=== PATIENT | female | born 1975 | race Caucasian/White ===

== ENCOUNTER 2019-02-25 15:20 | Inpatient (IN) | payer OTHER ==
[2019-02-25 20:59] VITALS: BMI 20.6
--- NOTE | 2019-02-25 21:23 | HP ---
CIWA Score Anxiety: 3 Paroxysmal Sweats: 2 - Admission Criteria OASAS Guidelines: Admission for Medically Managed Detox: Requires at least one of the followin. CIWA greater than 12 2. Seizures within the past 24 hours 3. Delirium tremens within the past 24 hours 4. Hallucinations within the past 24 hours 5. Acute intervention needed for co occurring medical disorder 6. Acute intervention needed for co occurring psychiatric disorder 7. Severe withdrawal that cannot be handled at a lower level of care (continued vomiting, continued diarrhea, abnormal vital signs) requiring intravenous medication and/or fluids 8. Client has a history of seizures is prescribed Keppra. Admission ROS [facility] Chief Complaint: Withdrawal symptoms Allergies/Adverse Reactions: Allergies Allergy/AdvReac Type Severity Reaction Status Date / Time No Known Allergies Allergy Verified 02/25/19 18:50 History of Present Illness: 43 y.o. woman with history of alcohol, heroin, crack-cocaine and marijuana dependence is here seeking rehab. She reports she completed detox 1 month ago at [facility] but left AMA from their rehab. She is currently enrolled at [facility] and states she was last medicated with 200mg of methadone earlier today (dose to be verified in the morning). PMHx: Epilepsy, HTN, Asthma, Hyperlipidemia, Depression Exam Limitations: No Limitations - Ebola screening Have you traveled outside of the country in the last 21 days: No Have you had contact with anyone from an Ebola affected area: No - Review of Systems Constitutional: No Symptoms Reported EENT: reports: No Symptoms Reported Respiratory: reports: Shortness of Breath Cardiac: reports: No Symptoms Reported GI: reports: No Symptoms Reported : reports: No Symptoms Reported Musculoskeletal: reports: No Symptoms Reported Integumentary: reports: No Symptoms Reported Neuro: reports: Seizure (3 months ago) Endocrine: reports: No Symptoms Reported Hematology: reports: No Symptoms Reported Psychiatric: reports: Orientated x3, Depressed Other Systems: Reviewed and Negative Patient History - Patient Medical History Hx Anemia: No Hx Asthma: Yes Hx Chronic Obstructive Pulmonary Disease (COPD): No Hx Cancer: No Hx Cardiac Disorders: No Hx Congestive Heart Failure: No Hx Hypertension: Yes Hx Hypercholesterolemia: Yes Hx Pacemaker: No HX Cerebrovascular Accident: No Hx Seizures: Yes (3 months ago ) Hx Dementia: No Hx Diabetes: No Hx Gastrointestinal Disorders: No Hx Liver Disease: No Hx Genitourinary Disorders: No Hx Sexually Transmitted Disorders: No Hx Renal Disease (ESRD): No Hx Thyroid Disease: No Hx Human Immunodeficiency Virus (HIV): No Hx Hepatitis C: No Hx Depression: Yes Hx Suicide Attempt: No Hx Bipolar Disorder: No Hx Schizophrenia: No - Patient Surgical History Past Surgical History: No - PPD History Documented Results: Negative w/o proof PPD to be Administered?: Yes - Reproductive History Patient is a Female of Child Bearing Age (11 -55 yrs old): No Last Menstrual Period: 02/01/19 Patient : No - Smoking Cessation Smoking history: Current every day smoker Have you smoked in the past 12 months: Yes Aproximately how many cigarettes per day: 20 Initiated information on smoking cessation: Yes 'Breaking Loose' booklet given: 02/25/19 - Substance & Tx. History Hx Alcohol Use: Yes Hx Substance Use: Yes Substance Use Type: Alcohol, Cocaine, Marijuana Hx Substance Use Treatment: Yes ([facility] ) - Substances abused Alcohol Substance route: Oral Frequency: Daily Amount used: 2 to 3 a pack of beer Age of first use: 11 Date of last use: 02/25/19 Crack Substance route: Smoking Frequency: Daily Amount used: 1 bundle Age of first use: 19 Date of last use: 02/25/19 Cocaine Substance route: Inhalation Frequency: Daily Amount used: 1 bundle Age of first use: 12 Date of last use: 02/25/19 Marijuana/Hashish Substance route: Smoking Frequency: Daily Amount used: 3 or 4 whole bags Age of first use: 11 Date of last use: 02/25/19 Heroin Substance route: Inhalation Frequency: Daily Amount used: 1 to 4 bags Age of first use: 12 Date of last use: 02/24/19 Family Disease History - Family Disease History Family History: Denies Admission Physical Exam BHS - Vital Signs Vital Signs: Vital Signs - 24 hr 02/25/19 02/25/19 18:48 20:59 Temperature 98 F 98 F Pulse Rate 122 H 122 H Respiratory 18 18 Rate Blood Pressure 134/76 134/76 - Physical General Appearance: Yes: No Apparent Distress, Nourished, Appropriately Dressed HEENTM: Yes: Hearing grossly Normal, Normocephalic, Normal Voice Respiratory: Yes: Lungs Clear, Normal Breath Sounds, No Respiratory Distress, No Accessory Muscle Use Neck: Yes: Within Normal Limits, No masses,lesions,Nodules Breast: Yes: Breast Exam Deferred Cardiology: Yes: Tachycardia Genitourinary: Yes: Other (no complaints reported) Back: Yes: Normal Inspection Musculoskeletal: Yes: full range of Motion, Gait Steady, Pelvis Stable Extremities: Yes: Normal Inspection, Normal Range of Motion, Non-Tender Neurological: Yes: Alert, Normal Mood/Affect, Normal Response Integumentary: Yes: Normal Color, Dry, Warm Lymphatic: Yes: Within Normal Limits - Diagnostic (1) Opioid dependence on agonist therapy Current Visit: Yes Status: Chronic (2) Nicotine dependence Current Visit: Yes Status: Chronic (3) Alcohol dependence Current Visit: Yes Status: Chronic (4) Cocaine dependence Current Visit: Yes Status: Chronic (5) Marijuana dependence Current Visit: Yes Status: Chronic (6) Asthma Current Visit: Yes Status: Chronic (7) HTN (hypertension) Current Visit: Yes Status: Chronic (8) Hyperlipidemia Current Visit: Yes Status: Chronic (9) Seizures Current Visit: Yes Status: Chronic Cleared for Admission [facility] - Detox or Rehab [facility] Level of Care: Observation Bed Detox Regimen/Protocol: Not Applicable Claeared for Rehab Admission: Yes Breathalyzer - Breathalyzer Breathalyzer: 0 Urine Drug Screen - Test Device Lot number: [id number] Expiration date: 10/31/20 - Control Is test valid?: Yes - Results Drug screen NEGATIVE: No Urine drug screen results: THC-Marijuana, WILL-Cocaine, MTD-Methadone Inpatient Rehab Admission - Rehab Decision to Admit Inpatient rehab admission?: Yes - Initial Determination Are CD services needed?: Yes Free of communicable disease: Yes Not in need of hospitalization: Yes - Rehab Admission Criteria Previous failed treatment: Yes Poor recovery environment: Yes Comorbidities: Yes Lacks judgement: Yes Patient is meeting Inpatient Rehab admission criteria:: Yes
[2019-02-25] MEDS ORDERED: MAGNESIUM HYDROX 2400MG/30ML ORAL SUSPENSION 30 ML CUP PO PRN (21:41)
[2019-02-25] MEDS ORDERED: hydrOXYzine PAMOATE 50 MG CAPSULE (FP) PO PRN (21:41)
[2019-02-25] MEDS ORDERED: P-EPHED 60MG/TRIPROLIDI 2.5MG TABLET PO PRN (21:41)
[2019-02-25] MEDS ORDERED: MENTHOL/PHENOL 1 EACH UD MM PRN (21:41)
[2019-02-25] MEDS ORDERED: NICOTINE POLACRILEX 2 MG GUM BC PRN (21:41)
[2019-02-25] MEDS ORDERED: IBUPROFEN 400 MG TABLET (FP) PO PRN (21:41)
[2019-02-25] MEDS ORDERED: MAGNESIUM CITRATE 300 ML BOTTLE PO PRN (21:41)
[2019-02-25] MEDS ORDERED: LOPERAMIDE HCL 2 MG CAPSULE PO PRN (21:41)
[2019-02-25] MEDS ORDERED: ACETAMINOPHEN 325 MG TABLET (FP) PO PRN (21:41)
[2019-02-25] MEDS ORDERED: guaiFENesin 200 MG/10 ML 10 ML UNIT-DOSE CUPS PO PRN (21:41)
[2019-02-25] MEDS ORDERED: ALBUTEROL SO4 8 GM HFA INHALER IH PRN (21:44)
[2019-02-25] MEDS ORDERED: levETIRAcetam 250 MG TABLET (FP) PO SCH (22:00)
[2019-02-25] MEDS: QUEtiapine FUMARATE 100 MG TABLET (FP) PO SCH (22:53)
[2019-02-25] MEDS: THIAMINE HCL 100 MG TABLET (FP) PO SCH (22:53)
[2019-02-26 01:30] LABS: HCG,QUALITATIVE URINE Negative
[2019-02-26 01:34] LABS: EPI CELLS 6.1 /HPF (0-5/HPF); HYALINE CASTS 2 /lpf (0-8); PH,URINE 5.5 (5.0-8.0); URINE APPEARANCE CLEAR; URINE BACTERIA 256.6 /hpf (NEGATIVE); URINE BILIRUBIN NEGATIVE (NEGATIVE); URINE COLOR YELLOW; URINE GLUCOSE (UA) NEGATIVE (NEGATIVE); URINE KETONE NEGATIVE (NEGATIVE); URINE LEUK ESTERASE TRACE (NEGATIVE); URINE NITRITE NEGATIVE (NEGATIVE); URINE PROTEIN NEGATIVE (NEGATIVE); URINE RBC 1 /hpf (0-4); URINE UROBILINOGEN 0.2 mg/dL (0.2-1.0); URINE WBC 4 /hpf (0-5)
--- NOTE | 2019-02-26 08:04 | EKG ---
Test Reason : Blood Pressure : / mmHG Vent. Rate : 051 BPM Atrial Rate : 051 BPM P-R Int : 108 ms QRS Dur : 090 ms QT Int : 540 ms P-R-T Axes : 078 076 061 degrees QTc Int : 497 ms SINUS BRADYCARDIA WITH SHORT GA POSSIBLE LEFT ATRIAL ENLARGEMENT LEFT VENTRICULAR HYPERTROPHY PROLONGED QT ABNORMAL ECG NO PREVIOUS ECGS AVAILABLE Confirmed by CORRIE BRAN MD ([id number]) on 02/26/2019 8:04:15 AM Referred By: Lexi Villalpando Confirmed By:CORRIE BRAN MD
[2019-02-26] MEDS ORDERED: METHADONE HCL 40 MG DISPERSABLE TABLET PO ONE (08:05)
[2019-02-26] MEDS: LISINOPRIL 5 MG TABLET (FP) PO SCH (09:07)
[2019-02-26] MEDS: PRENATAL VITAMINS W/ FOLIC ACID TABLET (FP) PO SCH (09:07)
[2019-02-26] MEDS: NICOTINE 21 MG/24 HOURS TOPICAL PATCH TD SCH (09:09)
[2019-02-26] MEDS ORDERED: PT OWN MED DRAWER 7, Y5N ONE (09:10)
[2019-02-26] MEDS: levETIRAcetam 500 MG TABLET (FP) PO SCH ×2 (09:51→21:32)
--- NOTE | 2019-02-26 10:46 | PN ---
S Progress Note Note: EKG showed prolonged Qt INTERVAL with Bradycardia. History of HTN. BP stable, heart rate was 54 then increased to 62 at 930. Requesting repeat today. will continue to monitor. Vital Signs (72 hours) 02/25/19 02/25/19 02/26/19 18:48 20:59 00:30 Temperature 98 F 98 F Pulse Rate 122 H 122 H Respiratory 18 18 18 Rate Blood Pressure 134/76 134/76 02/26/19 02/26/19 02/26/19 03:30 07:08 09:30 Temperature 98.2 F Pulse Rate 54 L 62 Respiratory 18 18 Rate Blood Pressure 123/67 124/76
--- NOTE | 2019-02-26 12:27 | EKG ---
Test Reason : Blood Pressure : / mmHG Vent. Rate : 049 BPM Atrial Rate : 049 BPM P-R Int : 106 ms QRS Dur : 084 ms QT Int : 512 ms P-R-T Axes : 072 068 051 degrees QTc Int : 462 ms SINUS BRADYCARDIA WITH SHORT VA POSSIBLE LEFT ATRIAL ENLARGEMENT LEFT VENTRICULAR HYPERTROPHY ABNORMAL ECG WHEN COMPARED WITH ECG OF 25-FEB-2019 22:06, NO SIGNIFICANT CHANGE WAS FOUND Confirmed by YINA GLEASON, CORRIE ([id number]) on 02/26/2019 12:27:26 PM Referred By: Lexi Villalpando Confirmed By:CORRIE BRAN MD
[2019-02-26 12:39] LABS: HEMATOCRIT 35.1 % (32.4-45.2); HEMOGLOBIN 11.3 GM/dL (10.7-15.3); MCH 28.4 pg (25.7-33.7); MCHC 32.2 g/dl (32.0-36.0); MEAN CELL VOLUME 88.4 fl (80-96); MEAN PLT VOLUME 9.7 fl (7.5-11.1); PLATELET COUNT 215 K/MM3 (134-434); RBC 3.97 M/mm3 (3.60-5.2); RDW 15.1 % (11.6-15.6); WHITE BLOOD COUNT 4.6 K/mm3 (4.0-10.0)
[2019-02-26 12:52] LABS: ALBUMIN 3.1 g/dl (3.4-5.0); BILIRUBIN,TOTAL 0.2 mg/dL (0.2-1); BLOOD UREA NITROGEN 15.9 mg/dL (7-18); CALCIUM 8.4 mg/dL (8.5-10.1); TOT PROT 6.3 g/dl (6.4-8.2)
[2019-02-26] MEDS: THIAMINE HCL 100 MG TABLET (FP) PO SCH (21:32)
[2019-02-26] MEDS: QUEtiapine FUMARATE 100 MG TABLET (FP) PO SCH (21:32)
[2019-02-26] MEDS: PATIENT'S OWN MEDICATION (NON-FORMULARY) (Simvastatin [Simvastatin] 10 MG) PO SCH (21:40)
[2019-02-27] MEDS: METHADONE HCL 40 MG DISPERSABLE TABLET PO SCH (06:06)
[2019-02-27] MEDS: LISINOPRIL 5 MG TABLET (FP) PO SCH (09:13)
[2019-02-27] MEDS: NICOTINE 21 MG/24 HOURS TOPICAL PATCH TD SCH (09:13)
[2019-02-27] MEDS: PRENATAL VITAMINS W/ FOLIC ACID TABLET (FP) PO SCH (09:13)
[2019-02-27] MEDS: levETIRAcetam 500 MG TABLET (FP) PO SCH ×2 (09:13→21:40)
[2019-02-27] MEDS ORDERED: PT OWN MED DRAWER 7, Y5N ONE ×3 (10:38→21:42)
[2019-02-27] MEDS: MAG HYDROX/AL HYDROX/SIMETH 30 ML UNIT-DOSE CUP PO PRN (11:58)
[2019-02-27] MEDS: THIAMINE HCL 100 MG TABLET (FP) PO SCH (21:39)
[2019-02-27] MEDS: QUEtiapine FUMARATE 100 MG TABLET (FP) PO SCH (21:40)
[2019-02-27] MEDS: PATIENT'S OWN MEDICATION (NON-FORMULARY) (Simvastatin [Simvastatin] 10 MG) PO SCH (21:41)
[2019-02-28] MEDS: METHADONE HCL 40 MG DISPERSABLE TABLET PO SCH (06:43)
[2019-02-28] MEDS: NICOTINE 21 MG/24 HOURS TOPICAL PATCH TD SCH (09:48)
[2019-02-28] MEDS: levETIRAcetam 500 MG TABLET (FP) PO SCH ×2 (09:48→21:18)
[2019-02-28] MEDS: PRENATAL VITAMINS W/ FOLIC ACID TABLET (FP) PO SCH (09:48)
[2019-02-28] MEDS: LISINOPRIL 5 MG TABLET (FP) PO SCH (09:49)
[2019-02-28] MEDS: PATIENT'S OWN MEDICATION (NON-FORMULARY) (Simvastatin [Simvastatin] 10 MG) PO SCH (11:00)
[2019-02-28] MEDS: MELATONIN 5 MG TABLETS PO PRN (21:17)
[2019-02-28] MEDS: THIAMINE HCL 100 MG TABLET (FP) PO SCH (21:17)
[2019-02-28] MEDS: QUEtiapine FUMARATE 100 MG TABLET (FP) PO SCH (21:18)
[2019-02-28] MEDS: MAG HYDROX/AL HYDROX/SIMETH 30 ML UNIT-DOSE CUP PO PRN (21:24)
[2019-02-28] MEDS ORDERED: PT OWN MED DRAWER 7, Y5N ONE (23:23)
[2019-03-01] MEDS: METHADONE HCL 40 MG DISPERSABLE TABLET PO SCH (06:10)
[2019-03-01] MEDS: levETIRAcetam 500 MG TABLET (FP) PO SCH ×2 (09:50→21:10)
[2019-03-01] MEDS: NICOTINE 21 MG/24 HOURS TOPICAL PATCH TD SCH (09:50)
[2019-03-01] MEDS: PRENATAL VITAMINS W/ FOLIC ACID TABLET (FP) PO SCH (09:50)
[2019-03-01] MEDS: LISINOPRIL 5 MG TABLET (FP) PO SCH (09:50)
[2019-03-01] MEDS: THIAMINE HCL 100 MG TABLET (FP) PO SCH (21:09)
[2019-03-01] MEDS: QUEtiapine FUMARATE 100 MG TABLET (FP) PO SCH (21:10)
[2019-03-01] MEDS: PATIENT'S OWN MEDICATION (NON-FORMULARY) (Simvastatin [Simvastatin] 10 MG) PO SCH ×2 (21:12→21:13)
[2019-03-01] MEDS: MAG HYDROX/AL HYDROX/SIMETH 30 ML UNIT-DOSE CUP PO PRN (21:13)
[2019-03-01] MEDS: MELATONIN 5 MG TABLETS PO PRN (21:14)
[2019-03-02] MEDS: MAG HYDROX/AL HYDROX/SIMETH 30 ML UNIT-DOSE CUP PO PRN (06:00)
[2019-03-02] MEDS: METHADONE HCL 40 MG DISPERSABLE TABLET PO SCH (06:00)
[2019-03-02] MEDS: LISINOPRIL 5 MG TABLET (FP) PO SCH (10:01)
[2019-03-02] MEDS: PRENATAL VITAMINS W/ FOLIC ACID TABLET (FP) PO SCH (10:01)
[2019-03-02] MEDS: NICOTINE 21 MG/24 HOURS TOPICAL PATCH TD SCH (10:02)
[2019-03-02] MEDS: levETIRAcetam 500 MG TABLET (FP) PO SCH ×2 (10:02→21:01)
[2019-03-02] MEDS ORDERED: levETIRAcetam 500 MG TABLET (FP) PO ONE (14:36)
--- NOTE | 2019-03-02 14:42 | PN ---
[facility] Progress Note Note: Patient's Levetiracetam level is 6.1. As per nurse, StanDonna Godinez, patient had earlier refused her AM dose. No seizure activity noted or reported aty this time Vital Signs Temperature 98 F 03/02/19 07:14 Pulse Rate 51 L 03/02/19 09:11 Respiratory Rate 18 03/02/19 09:11 Blood Pressure 111/65 03/02/19 09:11 O2 Sat by Pulse Oximetry (%) Action: Levetiracem 1000mg tablet oral stat ordered
[2019-03-02] MEDS ORDERED: levETIRAcetam 250 MG TABLET (FP) PO ONE ×2 (15:20→20:44)
[2019-03-02] MEDS: THIAMINE HCL 100 MG TABLET (FP) PO SCH (21:00)
[2019-03-02] MEDS: QUEtiapine FUMARATE 100 MG TABLET (FP) PO SCH (21:00)
[2019-03-02] MEDS: PATIENT'S OWN MEDICATION (NON-FORMULARY) (Simvastatin [Simvastatin] 10 MG) PO SCH (21:01)
[2019-03-02] MEDS: MELATONIN 5 MG TABLETS PO PRN (21:01)
[2019-03-03] MEDS: METHADONE HCL 40 MG DISPERSABLE TABLET PO SCH (06:19)
[2019-03-03] MEDS ORDERED: levETIRAcetam 250 MG TABLET (FP) PO ONE (08:48)
[2019-03-03] MEDS: NICOTINE 21 MG/24 HOURS TOPICAL PATCH TD SCH (09:55)
[2019-03-03] MEDS: LISINOPRIL 5 MG TABLET (FP) PO SCH (09:55)
[2019-03-03] MEDS: PRENATAL VITAMINS W/ FOLIC ACID TABLET (FP) PO SCH (09:55)
[2019-03-03] MEDS: levETIRAcetam 500 MG TABLET (FP) PO SCH ×2 (09:56→21:12)
[2019-03-03] MEDS ORDERED: PT OWN MED DRAWER 7, Y5N ONE (19:33)
[2019-03-03] MEDS: THIAMINE HCL 100 MG TABLET (FP) PO SCH (21:12)
[2019-03-03] MEDS: PATIENT'S OWN MEDICATION (NON-FORMULARY) (Simvastatin [Simvastatin] 10 MG) PO SCH (21:12)
[2019-03-03] MEDS: QUEtiapine FUMARATE 100 MG TABLET (FP) PO SCH (21:12)
[2019-03-03] MEDS: MELATONIN 5 MG TABLETS PO PRN (21:13)
[2019-03-04] MEDS: METHADONE HCL 40 MG DISPERSABLE TABLET PO SCH (06:40)
[2019-03-04] MEDS ORDERED: ASPIRIN 81 MG CHEWABLE TABLETS PO ONE (07:00)
[2019-03-04] MEDS: NICOTINE 21 MG/24 HOURS TOPICAL PATCH TD SCH (09:21)
[2019-03-04] MEDS: PRENATAL VITAMINS W/ FOLIC ACID TABLET (FP) PO SCH (09:21)
[2019-03-04] MEDS: levETIRAcetam 500 MG TABLET (FP) PO SCH ×2 (09:21→21:13)
[2019-03-04] MEDS: LISINOPRIL 5 MG TABLET (FP) PO SCH (09:21)
[2019-03-04] MEDS: THIAMINE HCL 100 MG TABLET (FP) PO SCH (21:13)
[2019-03-04] MEDS: QUEtiapine FUMARATE 100 MG TABLET (FP) PO SCH (21:13)
[2019-03-04] MEDS: PATIENT'S OWN MEDICATION (NON-FORMULARY) (Simvastatin [Simvastatin] 10 MG) PO SCH (21:14)
[2019-03-04] MEDS: MELATONIN 5 MG TABLETS PO PRN (21:25)
[2019-03-05] MEDS: METHADONE HCL 40 MG DISPERSABLE TABLET PO SCH (06:16)
[2019-03-05] MEDS: levETIRAcetam 500 MG TABLET (FP) PO SCH ×2 (09:25→21:21)
[2019-03-05] MEDS: NICOTINE 21 MG/24 HOURS TOPICAL PATCH TD SCH (09:25)
[2019-03-05] MEDS: PRENATAL VITAMINS W/ FOLIC ACID TABLET (FP) PO SCH (09:25)
[2019-03-05] MEDS: LISINOPRIL 5 MG TABLET (FP) PO SCH (09:26)
--- NOTE | 2019-03-05 16:28 | PN ---
S Progress Note (SOAP) Subjective: Patient's program needs psychiatry to change seoquel to trazadone. The program does not provide seroquel. Objective: No examination needed at this time. 03/05/19 16:27 Assessment: Program needs. 03/05/19 16:27 Plan: Patient's program requires seroquel to trazadone. The program does not provide seroquel.
[2019-03-05] MEDS: MELATONIN 5 MG TABLETS PO PRN (21:21)
[2019-03-05] MEDS: THIAMINE HCL 100 MG TABLET (FP) PO SCH (21:21)
[2019-03-05] MEDS: QUEtiapine FUMARATE 100 MG TABLET (FP) PO SCH (21:21)
[2019-03-05] MEDS: PATIENT'S OWN MEDICATION (NON-FORMULARY) (Simvastatin [Simvastatin] 10 MG) PO SCH (21:23)
[2019-03-06] MEDS: METHADONE HCL 40 MG DISPERSABLE TABLET PO SCH (06:09)
[2019-03-06] MEDS: PRENATAL VITAMINS W/ FOLIC ACID TABLET (FP) PO SCH (09:15)
[2019-03-06] MEDS: LISINOPRIL 5 MG TABLET (FP) PO SCH (09:15)
[2019-03-06] MEDS: NICOTINE 21 MG/24 HOURS TOPICAL PATCH TD SCH (09:15)
[2019-03-06] MEDS: levETIRAcetam 500 MG TABLET (FP) PO SCH ×2 (09:15→21:10)
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
[2019-03-06] MEDS: THIAMINE HCL 100 MG TABLET (FP) PO SCH (21:10)
[2019-03-06] MEDS: MELATONIN 5 MG TABLETS PO PRN (21:10)
[2019-03-06] MEDS: PATIENT'S OWN MEDICATION (NON-FORMULARY) (Simvastatin [Simvastatin] 10 MG) PO SCH (21:11)
[2019-03-06] MEDS: MIRTAZAPINE 15 MG TABLET (FP) PO SCH (21:12)
[2019-03-06] MEDS ORDERED: QUEtiapine FUMARATE 100 MG TABLET (FP) PO SCH (22:00)
[2019-03-07] MEDS: METHADONE HCL 40 MG DISPERSABLE TABLET PO SCH (06:11)
[2019-03-07] MEDS: levETIRAcetam 500 MG TABLET (FP) PO SCH ×2 (10:09→21:06)
[2019-03-07] MEDS: NICOTINE 21 MG/24 HOURS TOPICAL PATCH TD SCH (10:10)
[2019-03-07] MEDS: LISINOPRIL 5 MG TABLET (FP) PO SCH (10:10)
[2019-03-07] MEDS: PRENATAL VITAMINS W/ FOLIC ACID TABLET (FP) PO SCH (10:10)
--- NOTE | 2019-03-07 17:27 | PN ---
[facility] Progress Note Note: Psychiatric nurse practitioner note: Patient scheduled to be discharged on sunday to " [facility] rehab dedicated intermodal truck driver program." As per d/c plan, patient is not allowed to accept seroquel while at [facility] long-term program. Will d/c seroquel 100mg and order Seroquel 50mg . Last dose of seroquel will be given on Sunday evening. Patient in agreement with plan.
[2019-03-07] MEDS ORDERED: PT OWN MED DRAWER 7, Y5N ONE (19:28)
[2019-03-07] MEDS: THIAMINE HCL 100 MG TABLET (FP) PO SCH (21:05)
[2019-03-07] MEDS: MIRTAZAPINE 15 MG TABLET (FP) PO SCH (21:06)
[2019-03-07] MEDS: PATIENT'S OWN MEDICATION (NON-FORMULARY) (Simvastatin [Simvastatin] 10 MG) PO SCH (21:06)
[2019-03-07] MEDS: QUEtiapine FUMARATE 50 MG TABLET PO SCH (21:06)
[2019-03-08] MEDS: METHADONE HCL 40 MG DISPERSABLE TABLET PO SCH (06:53)
[2019-03-08] MEDS: levETIRAcetam 500 MG TABLET (FP) PO SCH ×2 (10:04→21:26)
[2019-03-08] MEDS: PRENATAL VITAMINS W/ FOLIC ACID TABLET (FP) PO SCH (10:04)
[2019-03-08] MEDS: NICOTINE 21 MG/24 HOURS TOPICAL PATCH TD SCH (10:04)
[2019-03-08] MEDS: LISINOPRIL 5 MG TABLET (FP) PO SCH (10:05)
[2019-03-08] MEDS: THIAMINE HCL 100 MG TABLET (FP) PO SCH (21:25)
[2019-03-08] MEDS: MIRTAZAPINE 15 MG TABLET (FP) PO SCH (21:26)
[2019-03-08] MEDS: MELATONIN 5 MG TABLETS PO PRN (21:26)
[2019-03-08] MEDS: QUEtiapine FUMARATE 50 MG TABLET PO SCH (21:26)
[2019-03-08] MEDS: PATIENT'S OWN MEDICATION (NON-FORMULARY) (Simvastatin [Simvastatin] 10 MG) PO SCH (21:27)
[2019-03-09] MEDS: METHADONE HCL 40 MG DISPERSABLE TABLET PO SCH (06:09)
[2019-03-09] MEDS: levETIRAcetam 500 MG TABLET (FP) PO SCH ×2 (09:47→22:58)
[2019-03-09] MEDS: PRENATAL VITAMINS W/ FOLIC ACID TABLET (FP) PO SCH (09:47)
[2019-03-09] MEDS: LISINOPRIL 5 MG TABLET (FP) PO SCH (09:47)
[2019-03-09] MEDS: NICOTINE 21 MG/24 HOURS TOPICAL PATCH TD SCH (09:47)
--- NOTE | 2019-03-09 17:14 | PN ---
S Progress Note Note: Psychiatric nurse pracitioner note: Seroquel 50mg discontinued as patient is aware that she will not be allowed to accept seroquel while at [facility] inpatient buttermaker continuous churn program." Patient in agreement with plan.
[2019-03-09] MEDS ORDERED: PT OWN MED DRAWER 7, Y5N ONE (21:45)
[2019-03-09] MEDS: THIAMINE HCL 100 MG TABLET (FP) PO SCH (22:58)
[2019-03-09] MEDS: MIRTAZAPINE 15 MG TABLET (FP) PO SCH (22:58)
[2019-03-09] MEDS: PATIENT'S OWN MEDICATION (NON-FORMULARY) (Simvastatin [Simvastatin] 10 MG) PO SCH (22:58)
[2019-03-10] MEDS: METHADONE HCL 40 MG DISPERSABLE TABLET PO SCH (06:25)
[2019-03-10 06:52] VITALS: TEMP 97.8
[2019-03-10] MEDS: levETIRAcetam 500 MG TABLET (FP) PO SCH ×2 (09:33→21:20)
[2019-03-10] MEDS: NICOTINE 21 MG/24 HOURS TOPICAL PATCH TD SCH (09:33)
[2019-03-10] MEDS: LISINOPRIL 5 MG TABLET (FP) PO SCH (09:34)
[2019-03-10] MEDS: PRENATAL VITAMINS W/ FOLIC ACID TABLET (FP) PO SCH (09:34)
--- NOTE | 2019-03-10 13:27 | PN ---
[facility] Progress Note Note: Patient is scheduled for discharge tomorrow. Script for 30 days supply of Remeron 15 mg/hs will be electronically transmitted to [facility] at [address] [place], [place] [id number]
[2019-03-10] MEDS ORDERED: cloNIDine HCL 0.1 MG TABLET PO PRN (18:20)
[2019-03-10] MEDS: THIAMINE HCL 100 MG TABLET (FP) PO SCH (21:20)
[2019-03-10] MEDS: MELATONIN 5 MG TABLETS PO PRN (21:20)
[2019-03-10] MEDS: PATIENT'S OWN MEDICATION (NON-FORMULARY) (Simvastatin [Simvastatin] 10 MG) PO SCH (21:20)
[2019-03-10] MEDS: MIRTAZAPINE 15 MG TABLET (FP) PO SCH (21:20)
[2019-03-11] MEDS ORDERED: METHADONE HCL 40 MG DISPERSABLE TABLET PO SCH (06:00)
[2019-03-11 06:49] VITALS: BP 119/65; PULSE 119
--- NOTE | 2019-03-11 09:56 | PN ---
[facility] Progress Note (SOAP) Subjective: PT COMPLETED REHAB AND DISCHARGED TODAY. PT MET WITH HER COUNSELOR AND WAS REFERRED TO [facility]/Jazzmine Wilhelm FOR CD AFTERCARE AND [facility]. PT TO FOLLOW UP WITH PRIMARY CARE AT [facility]IC FOR MEDICAL MANAGEMENT. 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 INSTRUCTED TO FOLLOW UP WITH PRIMARY CARE THEREAFTER. ALERT O X 3. DENIES S/H/I. Objective: 03/11/19 09:55 Vital Signs - 24 hr 03/11/19 03/11/19 00:30 06:48 Temperature 97.8 F Pulse Rate 119 H Respiratory 18 18 Rate Blood Pressure 119/65 Laboratory Tests 02/25/19 02/25/19 02/26/19 22:53 22:53 08:40 WBC 4.6 RBC 3.97 Hgb 11.3 Hct 35.1 MCV 88.4 MCH 28.4 MCHC 32.2 RDW 15.1 Plt Count 215 MPV 9.7 Sodium Potassium Chloride Carbon Dioxide Anion Gap BUN Creatinine Est GFR (CKD-EPI)AfAm Est GFR (CKD-EPI)NonAf Random Glucose Calcium Total Bilirubin AST ALT Alkaline Phosphatase Total Protein Albumin Urine Color Yellow Urine Appearance Clear Urine pH 5.5 Ur Specific [place] 1.017 Urine Protein Negative Urine Glucose (UA) Negative Urine Ketones Negative Urine Blood Negative Urine Nitrite Negative Urine Bilirubin Negative Urine Urobilinogen 0.2 Ur Leukocyte Esterase Trace Urine WBC (Auto) 4 Urine RBC (Auto) 1 Urine Casts (Auto) 2 U Epithel Cells (Auto) 6.1 Urine Bacteria (Auto) 256.6 Urine HCG, Qual Negative POC Urine HCG, Qual Negative Levetiracetam RPR Titer HIV 1&2 Antibody Screen HIV P24 Antigen 02/26/19 02/26/19 02/26/19 08:40 08:40 10:00 WBC RBC Hgb Hct MCV MCH MCHC RDW Plt Count MPV Sodium 141 Potassium 4.0 Chloride 108 H Carbon Dioxide 26 Anion Gap 6 L BUN 15.9 Creatinine 1.0 Est GFR (CKD-EPI)AfAm 79.35 Est GFR (CKD-EPI)NonAf 68.46 Random Glucose 107 H Calcium 8.4 L Total Bilirubin 0.2 AST 12 L ALT 16 Alkaline Phosphatase 74 Total Protein 6.3 L Albumin 3.1 L Urine Color Urine Appearance Urine pH Ur Specific [place] Urine Protein Urine Glucose (UA) Urine Ketones Urine Blood Urine Nitrite Urine Bilirubin Urine Urobilinogen Ur Leukocyte Esterase Urine WBC (Auto) Urine RBC (Auto) Urine Casts (Auto) U Epithel Cells (Auto) Urine Bacteria (Auto) Urine HCG, Qual POC Urine HCG, Qual Levetiracetam 6.1 L RPR Titer Nonreactive HIV 1&2 Antibody Screen HIV P24 Antigen 02/27/19 06:00 WBC RBC Hgb Hct MCV MCH MCHC RDW Plt Count MPV Sodium Potassium Chloride Carbon Dioxide Anion Gap BUN Creatinine Est GFR (CKD-EPI)AfAm Est GFR (CKD-EPI)NonAf Random Glucose Calcium Total Bilirubin AST ALT Alkaline Phosphatase Total Protein Albumin Urine Color Urine Appearance Urine pH Ur Specific [place] Urine Protein Urine Glucose (UA) Urine Ketones Urine Blood Urine Nitrite Urine Bilirubin Urine Urobilinogen Ur Leukocyte Esterase Urine WBC (Auto) Urine RBC (Auto) Urine Casts (Auto) U Epithel Cells (Auto) Urine Bacteria (Auto) Urine HCG, Qual POC Urine HCG, Qual Levetiracetam RPR Titer HIV 1&2 Antibody Screen Negative HIV P24 Antigen Negative Home Medications Medication Instructions Recorded Ibuprofen 400 mg PO TID PRN 02/25/19 Methadone 200 mg PO DAILY 02/25/19 Quetiapine Fumarate [Seroquel] 200 mg PO HS 02/25/19 Trazodone HCl 150 mg PO HS 02/25/19 Levetiracetam [Keppra] 500 mg PO BID #60 tablet 03/10/19 Lisinopril [Prinivil] 5 mg PO DAILY #30 tablet 03/10/19 Mirtazapine [Remeron -] 15 mg PO HS #30 tablet 03/10/19 Simvastatin 10 mg PO HS #30 tablet 03/10/19 03/11/19 10:55 Assessment: 03/11/19 09:55 NAD MEDICALLY STABLE 03/11/19 10:56 [facility] Inpatient Services Medical - Diagnosis (1) Alcohol dependence Qualifiers: Substance use status: uncomplicated Qualified Code(s): F10.20 - Alcohol dependence, uncomplicated Status: Chronic (2) Asthma Qualifiers: Asthma severity: unspecified severity Asthma persistence: unspecified Asthma complication type: unspecified Qualified Code(s): J45.909 - Unspecified asthma, uncomplicated Status: Chronic (3) Cocaine dependence Qualifiers: Substance use status: uncomplicated Qualified Code(s): F14.20 - Cocaine dependence, uncomplicated Status: Chronic (4) HTN (hypertension) Qualifiers: Hypertension type: essential hypertension Qualified Code(s): I10 - Essential (primary) hypertension Status: Chronic (5) Hyperlipidemia Qualifiers: Hyperlipidemia type: unspecified Qualified Code(s): E78.5 - Hyperlipidemia , unspecified Status: Chronic (6) Marijuana dependence Status: Chronic (7) Nicotine dependence Qualifiers: Nicotine product type: cigarettes Substance use status: uncomplicated Qualified Code(s): F17.210 - Nicotine dependence, cigarettes, uncomplicated Status: Chronic (8) Seizures Status: Chronic (9) Opioid dependence on agonist therapy Status: Chronic Plan: FOLLOW UP WITH CD AFTERCARE FOLLOW UP WITH PRIMARY CARE FOR MEDICAL MANAGEMENT WITHIN 1-2 WEEKS AFTER DISCHARGE.
== END 2019-03-11 08:40 | disposition home or self-care (01) | DRG 772 ==
LOC: YASAS 15:20 → Y3E 21:42
PROVIDERS: ADMIT Neuromusculoskeletal Medicine & OMM; ATTEND Neuromusculoskeletal Medicine & OMM
PROC: HZ42ZZZ Group Counseling for Substance Abuse Treatment, Cognitive-Behavioral (ICD-10-PCS; principal; 2019-02-25)
DX: F10.20 Alcohol dependence, uncomplicated (principal); F11.20 Opioid dependence, uncomplicated; F14.20 Cocaine dependence, uncomplicated; F12.20 Cannabis dependence, uncomplicated; F17.210 Nicotine dependence, cigarettes, uncomplicated; F19.282 Other psychoactive substance dependence with psychoactive substance-induced sleep disorder; F43.10 Post-traumatic stress disorder, unspecified; I10 Essential (primary) hypertension; J45.909 Unspecified asthma, uncomplicated; E78.5 Hyperlipidemia, unspecified; G40.909 Epilepsy, unspecified, not intractable, without status epilepticus
CPT/HCPCS: 36415; 80053; 80177; 81003; 81025; 84703; 85027; 86593; 87389; 93005; 93010